=== PATIENT | female | born 2000 | race Hispanic/Latino ===

== ENCOUNTER 2023-09-16 15:14 | Emergency (ER) | payer BC ==
[~2023-09-16] VITALS: Ht 175.3 cm; Wt 99.8 kg
[2023-09-16] MEDS ORDERED: LACTATED RINGER'S 1,000 ML ONE (15:54)
[2023-09-16] MEDS ORDERED: ONDANSETRON HCL INJ 2MG/ML 2ML 2 MG/ML VIAL ONE ×2 (15:54)
[2023-09-16 16:03] LABS: BASOPHILS % 0.3 % (0.0-1.0); EOSINOPHILS # (AUTO) 0.3 (0.0-0.4); EOSINOPHILS % 2.1 % (0.0-6.0); HEMATOCRIT 39.3 % (34.2-44.1); HEMOGLOBIN 13.9 g/dL (12.0-16.0); LYMPHOCYTES # (AUTO) 0.5 (1.0-3.2); LYMPHOCYTES % 3.7 % (18.0-39.1); MEAN CORPUSCULAR HEMOGLOBIN 29.3 pg (28-32); MEAN CORPUSCULAR HGB CONC 35.4 g/dL (31-35); MEAN CORPUSCULAR VOLUME 82.9 fL (81-99); MONOCYTES # (AUTO) 0.4 (0.2-0.8); MONOCYTES % 2.9 % (4.4-11.3); NEUTROPHILS # (AUTO) 13.2 (2.1-6.9); NEUTROPHILS % 90.6 % (38.7-80.0); PLATELET COUNT 245 x10e3/uL (140-360); RED BLOOD COUNT 4.74 x10e6/uL (3.6-5.1); RED CELL DISTRIBUTION WIDTH 12.6 % (11.7-14.4); WHITE BLOOD COUNT 14.61 x10e3/uL (4.8-10.8)
[2023-09-16] MEDS ORDERED: ONDANSETRON HCL INJ 2MG/ML 2ML 2 MG/ML VIAL IV STA (16:10)
[2023-09-16] MEDS ORDERED: LACTATED RINGER'S 1,000 ML INJ ONE (16:15)
[2023-09-16 16:17] LABS: ALBUMIN 3.9 g/dL (3.5-5.0); ANION GAP 15.7 mmol/L (8-16); CALCIUM 9.1 mg/dL (8.4-10.2); CREATININE, SERUM 0.78 mg/dL (0.57-1.11); POTASSIUM 3.7 mmol/L (3.5-5.1)
[2023-09-16] MEDS ORDERED: ONDANSETRON ODT4 MG PO (16:52)
[2023-09-16 17:10] VITALS: O2SAT 99
== END 2023-09-16 18:10 | disposition home or self-care (01) ==
LOC: ER 15:23
DX: R10.13 Epigastric pain (principal); R11.2 Nausea with vomiting, unspecified
CPT/HCPCS: 36415; 71045; 80053; 83690; 84702; 85025; 99284; J2405; J7121